=== PATIENT | male | born 1995 | race Two or more races ===

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

== ENCOUNTER → 2017-06-18 | Outpatient (REF) | payer OTHER | LOC: M SFHCLERA 13:11 | DX: J02.9 Acute pharyngitis, unspecified (principal) ==